=== PATIENT | female | born 1945 | race Caucasian/White ===

== ENCOUNTER 2020-08-30 12:52 | Outpatient (CLI) | payer MEDICARE, SELFPAY | END 2020-08-30 12:53 | disposition home or self-care (01) | PROVIDERS: PCP Internal Medicine; Visit Provider Internal Medicine | DX: J02.9 Acute pharyngitis, unspecified (principal) | CPT/HCPCS: 87081; 87880 ==

== ENCOUNTER 2022-03-06 20:21 | Emergency (ER) | payer MEDICARE, SELFPAY ==
[2022-03-06] VITALS (14 sets, daily range): BP systolic 137–156; BP diastolic 53–86; PULSE 81–90; RESP 9–14; O2SAT 94–99
--- NOTE | ~2022-03-06 | CT_ITS ---
EXAMINATION: CT abdomen pelvis w con DATE: 03/07/2022 00:19 INDICATION: Abdominal pain TECHNIQUE: Computed tomography (CT) of the abdomen and pelvis was performed with 100 CC Omnipaque 350 intravenous contrast. Automated exposure control and iterative reconstruction technique were employe d. Exam dose: 1187.77 mGy-cm total exam DLP. COMPARISON: None. FINDINGS: There is discoid atelectasis or scarring in the lobe and lingula. There is mild dependent a telectasis in both lower lobes. Cardiomegaly. No pericardial or pleural effusion. The liver, gallbladder, bile ducts, pancreas, pancreatic duct, spleen, adrenal glands and kidneys wilder ear normal. No urinary tract calculus or hydroureteronephrosis. Normal caliber of the abdominal aorta. No intraperitoneal or retroperitoneal or pelvic mass lesion or adenopathy or ascites. Retroverted uterus. The central endometrial echo measures up to 1.5 cm AP dimension, which is greater than expected in a postmenopausal patient. Consider pelvic ultrasound examination. The adnexal areas and urinary bladder are unremarkable except for a small amount of gas in the urinary bladder, possib ly due to recent Ma catheter. No urinary bladder wall thickening or pericholecystic fat stranding. No bowel obstruction, bowel wall thickening, pneumatosis or intraperitoneal free air. Very small fat-containing umbilical hernia. Mild to moderate L1 compression fracture deformity. Scoliosis and multilevel degenerative disc disease of the lumbar spine, most pronounced at L4-5. Ther e is mild retrolisthesis at L5-S1. IMPRESSION: Cardiomegaly Mild atelectasis in the lower lung zones Retroverted uterus with greater than expected AP dimension of the endometrial canal at 1.5 cm; consid er pelvic ultrasound examination L1 compression fracture deformity Scoliosis and multilevel degenerative disc disease of the lumbar spine Mild retrolisthesis at L5-S1 Reviewed, dictated and finalized at [facility]. Reviewed, dictated and finalized at location [facility]. IMPRESSION: Cardiomegaly Mild atelectasis in the lower lung zones Retroverted uterus with greater than expected AP dimension of the endometrial c anal at 1.5 cm; consider pelvic ultrasound examination L1 compression fracture deformity Scoliosis and multilevel degenerative disc disease of the lumbar spine Mild retrolisthesis at L5-S1
--- NOTE | ~2022-03-06 | XR_ITS ---
EXAMINATION: XR chest 2V Exam Date/Time: 03/06/2022 20:35 CDT CLINICAL HISTORY: HEART PALPATATIONS Comparison: None available. RESULT: Lines, tubes, and devices: None. Lungs and pleura: Clear. Cardiomediastinal silhouette: Stable cardiomediastinal silhouette. Other: No acute osseous or upper abdominal finding. IMPRESSION: No acute cardiopulmonary process Reviewed, dictated and finalized at location [facility].
--- NOTE | 2022-03-06 20:11 | ED.ARRPALP ---
HPI - Arrhythmia/Palpitations General Chief Complaint: Arrhythmia/Palpitations <Lauren Reardon MD - Last Filed: 03/06/22 23:59> Stated Complaint: heart palp x 1 hour ago now chest tightness <Lauren Reardon MD - Last Filed: 03/06/22 23:59> Source: patient and EMS <Lauren Reardon MD - Last Filed: 03/06/22 23:59> Mode of arrival: EMS <Lauren Reardon MD - Last Filed: 03/06/22 23:59> Limitations: no limitations <Lauren Reardon MD - Last Filed: 03/06/22 23:59> History of Present Illness HPI narrative: The patient is a 76 year old female with hx of HTN, HLD, MS on methotrexate, overactive bladder, presenting to the emergency department for evaluation of palpitations. Patient states that she has had 3 episodes of palpitations today, where she feels racing heart. She denies any significant chest pain concurrently, nausea, diaphoresis, shortness of breath. Patient states that the palpitations began and ended suddenly. They do not last more than a few seconds. She denies any jaw pain, neck pain. She does report some mild diarrhea, general malaise, intermittent abdominal pain over the past several days. Patient states that she has had loose deals for many months, thought that perhaps she had a virus. She denies any recent medication changes and has been compliant with her methotrexate. She denies dysuria, hematuria, fever, chills. She denies any known history of symptomatic COVID. She reports chronic bilateral lower extremity edema without unilateral swelling, calf pain, redness. No history of coagulopathy or DVT. Patient denies any current palpitations. <Lauren Reardon MD - Last Filed: 03/06/22 23:59> Related Data Home Medications: Home Medications Medication Instructions Recorded Confirmed baclofen 10 mg tablet 10 mg PO BID tablet 09/09/19 10/20/21 ascorbate calcium (vitamin C) 500 500 mg PO DAILY 04/05/21 10/20/21 mg tablet cholecalciferol (vitamin D3) 125 125 mcg PO DAILY 04/05/21 10/20/21 mcg (5,000 unit) capsule coenzyme [id number] 100 mg-5 cap PO 04/05/21 10/20/21 unit capsule cranberry 500 mg capsule 500 mg PO BID 04/05/21 10/20/21 folic acid 20 mg capsule 20 mg PO DAILY 04/05/21 10/20/21 multivitamin 1 tablet PO DAILY 04/05/21 10/20/21 solifenacin 10 mg tablet 10 mg PO DAILY 04/05/21 10/20/21 psyllium husk 0.4 gram capsule 0.4 g PO DAILY 08/16/21 10/20/21 methotrexate sodium 2.5 mg tablet 7.5 mg PO WEEKLY tablet 10/20/21 10/20/21 <Lauren Reardon MD - Last Filed: 03/06/22 23:59> Allergies/Adverse Reactions: Allergies Allergy/AdvReac Type Severity Reaction Status Date / Time nitrofurantoin Allergy Mild Hives Verified 10/20/21 12:44 Penicillins Allergy Mild Hives Verified 10/20/21 12:44 Sulfa (Sulfonamide Allergy Mild Rash Verified 10/20/21 12:44 Antibiotics) sulfamethizole Allergy Mild Hives Verified 10/20/21 12:44 <Lauren Reardon MD - Last Filed: 03/06/22 23:59> Review of Systems Review of Systems: CONSTITUTIONAL: Denies fever, chills, or sweats. EYES: Denies visual changes, redness, or discharge. ENT: Denies rhinorrhea, congestion, sore throat, or otalgia. CARDIOVASCULAR: Denies chest pain, reports intermittent palpitations, denies any currently RESPIRATORY: Denies cough or dyspnea. GASTROINTESTINAL: Denies abdominal pain, nausea, vomiting, or diarrhea. GENITOURINARY: Denies dysuria or hematuria. SKIN: Denies rash or itching. MUSCULOSKELETAL: Denies back pain, joint pain, or myalgia. NEUROLOGIC: Denies headache, numbness, or weakness. <Lauren Reardon MD - Last Filed: 03/06/22 23:59> [facility] Past Medical History Medical History: Medical History Encounter for screening colonoscopy <Lauren Reardon MD - Last Filed: 03/06/22 23:59> Family History Family History: Family History Sibling Family hi
--- NOTE | 2022-03-06 20:27 | ECG_ITS ---
Measurements Intervals [place] Rate: 80 P: 67 PA: 167 QRS: -31 QRSD: 136 T: -4 QT: 405 QTc: 468 Interpretive Statements SINUS RHYTHM LEFT AXIS DEVIATION [QRS AXIS < -30] RIGHT BUNDLE BRANCH BLOCK [120+ ms QRS DURATION, UPRIGHT V1, 40+ ms S IN I/aVL/V4/V5/V6] MODERATE T-WAVE ABNORMALITY, CONSIDER LATERAL ISCHEMIA [-0.1+ mV T-WAVE IN I/aVL/V5/V6] NO PREVIOUS ECG AVAILABLE FOR COMPARISON Electronically Signed On 03-07-2022 11:45:25 CDT by Guanako Rivera M.D.
[2022-03-06 21:07] LABS: Basophils Percent Auto 0.4 % (0.2-1.2); Eosinophils Absolute Auto 0.1 K/mm3 (0-0.3); Eosinophils Percent Auto 1.2 % (0-4.4); Hemoglobin 15.4 g/dL (12.0-15.0); Immature Granulocyte Absolute 0.03 K/mm3 (0.00-0.031); Immature Granulocyte Percent A 0.4 % (0-0.5); Lymphocytes Absolute Auto 1.39 K/mm3 (0.9-3.2); Lymphocytes Percent Auto 17.3 % (18.3-44.2); Mean Corpuscular HGB Conc 32.1 g/dl (32-36); Mean Corpuscular Hemoglobin 32.2 pg (26-34); Mean Corpuscular Volume 100.4 fl (80-100); Mean Platelet Volume 10.1 fl (7.4-10.4); Monocytes Absolute Auto 0.6 K/mm3 (0.1-0.6); Monocytes Percent Auto 7.8 % (2.6-8.5); Neutrophils Absolute Auto 5.9 K/mm3 (1.3-6.7); Neutrophils Percent Auto 72.9 % (45.5-73.1); Platelet Count Result 192 k/mm3 (150-375); Red Blood Count 4.78 M/mm3 (4.2-5.4); Red Cell Distribution Width 13.2 % (11.5-14.5)
[2022-03-06 21:16] LABS: Alanine Aminotransferase 45 U/L (4-35); Albumin Level 4.4 g/dL (3.5-5.1); Alkaline Phosphatase 100 U/L (38-126); Anion Gap 6 mmol/L (8-16); Aspartate Amino Transferase 44 U/L (14-36); Bilirubin,Total 0.4 mg/dL (0.2-1.3); Blood Urea Nitrogen 15 mg/dL (7-17); Calcium 9.5 mg/dL (8.4-10.2); Carbon Dioxide 31 mmol/L (22-30); Chloride 104 mmol/L (98-107); Estimated Glomerular Filt Rate > 60; Glucose 116 mg/dL (65-110); Lipase 61 U/L (23-300); Potassium 3.8 mmol/L (3.4-5.0); Sodium 141 mmol/L (137-145)
[2022-03-06 21:23] LABS: Prothrombin Time 13.1 Seconds (11.1-14.7)
[2022-03-06 21:28] LABS: Troponin I < 0.012 ng/mL (0.000-0.034)
[2022-03-06 22:50] LABS: D Dimer 0.35 ug/mL (<0.48)
[2022-03-07] VITALS (12 sets, daily range): BP systolic 156; BP diastolic 67; PULSE 84–100; RESP 12–39; O2SAT 94–96
[2022-03-07 00:03] LABS: Troponin I < 0.012 ng/mL (0.000-0.034)
[2022-03-07 02:22] LABS: SARS-CoV-2 RNA PCR Negative
== END 2022-03-07 05:28 | disposition home or self-care (01) ==
PROVIDERS: Emergency Provider Emergency Medicine; PCP Internal Medicine
DX: R00.2 Palpitations (principal); Z20.822 Contact with and (suspected) exposure to COVID-19; G35 Multiple sclerosis; I10 Essential (primary) hypertension; E78.5 Hyperlipidemia, unspecified; N32.81 Overactive bladder; I45.10 Unspecified right bundle-branch block; R94.31 Abnormal electrocardiogram [ECG] [EKG]; R10.9 Unspecified abdominal pain
CPT/HCPCS: 36415; 71046; 74177; 80053; 83690; 84443; 84484; 85025; 85380; 85610; 85730; 87804; 93005; 99284; C9803; Q9967; U0003; U0005

== ENCOUNTER 2023-01-27 13:09 | Emergency (ER) | payer MEDICARE, SELFPAY ==
--- NOTE | ~2023-01-27 | XR_ITS ---
Portable chest x-ray Comparison: 03/06/2022 Clinical History: Diabetes, CHF Findings: Lungs are clear, without focal consolidation or pleural effusion. Cardiomediastinal silho uette is stable. Bones and soft tissues are unremarkable. Impression: Clear lungs. Reviewed, dictated and finalized at location . Impression: Clear lungs.
--- NOTE | ~2023-01-27 | US_ITS ---
Duplex Sonography of the bilateral lower extremities: Indication: Swelling Sagittal and transverse B-mode images as well as color-flow imaging were performed on the right and l eft femoral and popliteal veins. B-mode examination was done without and with compression in the tra nsverse plane. There is good visualization of the bilateral common femoral, proximal profunda femora l, superficial femoral, greater saphenous, and popliteal veins. Normal flow was seen on color-flow im aging. Normal compressibility was demonstrated. There is limited visualization of the posterior tibial and peroneal veins bilaterally. Impression: No evidence of deep vein thrombosis involving the bilateral femoral, greater saphenous, s uperficial femoral, or popliteal veins. Limited evaluation of the posterior tibial and peroneal veins bilaterally. Thrombosis of these vessel s cannot be confirmed or excluded. Reviewed, dictated and finalized at location . Impression: No evidence of deep vein thrombosis involving the bilateral femoral , greater saphenous, superficial femoral, or popliteal veins. Limited evaluation of the posterior tibial and peroneal veins bilaterally. Thro mbosis of these vessels cannot be confirmed or excluded.
[2023-01-27 13:13] VITALS: BP 178/81; PULSE 62; RESP 18; TEMP 36.2; O2SAT 98
--- NOTE | 2023-01-27 15:42 | ED.LOWEXIN ---
HPI - Extremity Injury (Lower) General Chief Complaint: Extremity Injury, Lower Stated Complaint: foot swelling/weeping Time Seen by Provider: 01/27/23 15:19 Source: patient Mode of arrival: ambulatory Limitations: no limitations History of Present Illness HPI Narrative: 77-year-old female presents today for complaints of bilateral lower extremity edema. Patient states she has noticed weeping as well. Patient does have a history of bilateral lower extremity edema for over a year now and she states that she thinks it is worse. More concerning is the weeping that she is having. Patient does have a history of MS and spends most of her days in an electronic wheelchair. Per her primary care doctor's note she has lymphedema is noncompliant with her lymphedema pump. Denies injury or hx of chf. Denies sob, cough, chest pain. Related Data Home Medications Medication Instructions Recorded Confirmed baclofen 10 mg tablet 10 mg PO BID 09/09/19 10/18/22 ascorbate calcium (vitamin C) 500 500 mg PO DAILY 04/05/21 10/18/22 mg tablet cholecalciferol (vitamin D3) 125 125 mcg PO DAILY 04/05/21 10/18/22 mcg (5,000 unit) capsule coenzyme [id number] E 100 mg-5 cap PO 04/05/21 10/18/22 unit capsule (Co Q-10 (with Vit E)) cranberry 500 mg capsule 500 mg PO BID 04/05/21 10/18/22 folic acid 20 mg capsule 20 mg PO DAILY 04/05/21 10/18/22 solifenacin 10 mg tablet 10 mg PO DAILY 04/05/21 10/18/22 psyllium husk 0.4 gram capsule 0.4 g PO DAILY 08/16/21 10/18/22 (Fiber (psyllium husk)) methotrexate sodium 2.5 mg tablet 7.5 mg PO WEEKLY 10/20/21 10/18/22 Allergies Allergy/AdvReac Type Severity Reaction Status Date / Time nitrofurantoin Allergy Mild Hives Verified 01/27/23 17:37 Penicillins Allergy Mild Hives Verified 01/27/23 17:37 Sulfa (Sulfonamide Allergy Mild Rash Verified 01/27/23 17:37 Antibiotics) sulfamethizole Allergy Mild Hives Verified 01/27/23 17:37 Review of Systems Review of Systems: CONSTITUTIONAL: Denies fever, chills, or sweats. EYES: Denies visual changes, redness, or discharge. ENT: Denies rhinorrhea, congestion, sore throat, or otalgia. CARDIOVASCULAR: Denies chest pain, palpitations, or edema. RESPIRATORY: Denies cough or dyspnea. GASTROINTESTINAL: Denies abdominal pain, nausea, vomiting, or diarrhea. SKIN: Denies rash or itching. Erythema, weeping, and edema to bilateral lower extremities MUSCULOSKELETAL: Denies back pain, joint pain, or myalgia. NEUROLOGIC: Denies headache, numbness, dizziness, or weakness. PSYCHIATRIC: Denies anxiety or depression. [facility] Past Medical History Medical History Dyslipidemia Encounter for screening colonoscopy Impaired glucose tolerance Lymphedema MS (multiple sclerosis) Obesity Overactive bladder Paraparesis of both lower limbs Positive colorectal cancer screening using Cologuard test Family History Family History Sibling Family history of multiple sclerosis Father Family history of diabetes mellitus in first degree relative Acute myocardial infarction Mother Acute myocardial infarction Other Diabetes mellitus Family history of cardiovascular disease Family history of musculoskeletal disease Social History Social History Smoking status: Never smoker Second hand tobacco smoke exposure: No Alcohol intake: never Substance use: never Lack of Transportation: No Lack of Food: Never True Current Housing: I Have Housing Concerned About Future Housing: No Difficulty Paying Gas/Electric Bills: No Difficulty Paying for Meds: No Education: Master's Degree or Higher Difficulty w/ Childcare or Family Care: No Exam Narrative: GENERAL: Well-appearing, well-nourished, and in no acute distress. HEAD: Normocephalic, atraumatic. EYES: PERRLA and EOMI. CHEST: Clear to auscultation. No respi
[2023-01-27 16:27] LABS: Basophils Percent Auto 0.3 % (0.2-1.2); Eosinophils Absolute Auto 0.1 K/mm3 (0-0.3); Eosinophils Percent Auto 1.3 % (0-4.4); Hematocrit 45.6 % (37.0-47.0); Hemoglobin 14.8 g/dL (12.0-15.0); Immature Granulocyte Absolute 0.01 K/mm3 (0.00-0.031); Immature Granulocyte Percent A 0.2 % (0-0.5); Lymphocytes Absolute Auto 1.12 K/mm3 (0.9-3.2); Lymphocytes Percent Auto 18.6 % (18.3-44.2); Mean Corpuscular HGB Conc 32.5 g/dl (32-36); Mean Corpuscular Hemoglobin 32.1 pg (26-34); Mean Corpuscular Volume 98.9 fl (80-100); Mean Platelet Volume 10.7 fl (7.4-10.4); Monocytes Absolute Auto 0.5 K/mm3 (0.1-0.6); Monocytes Percent Auto 7.5 % (2.6-8.5); Neutrophils Absolute Auto 4.3 K/mm3 (1.3-6.7); Neutrophils Percent Auto 72.1 % (45.5-73.1); Platelet Count Result 144 k/mm3 (150-375); Red Blood Count 4.61 M/mm3 (4.2-5.4); Red Cell Distribution Width 14.2 % (11.5-14.5)
[2023-01-27 16:37] LABS: Prothrombin Time 12.6 Seconds (11.1-14.7)
[2023-01-27 16:38] LABS: Alanine Aminotransferase 64 U/L (6-35); Albumin Level 4.3 g/dL (3.5-5.1); Alkaline Phosphatase 119 U/L (38-126); Anion Gap 4 mmol/L (8-16); Aspartate Amino Transferase 48 U/L (14-36); Bilirubin,Total 0.6 mg/dL (0.2-1.3); Blood Urea Nitrogen 16 mg/dL (7-17); Calcium 9.8 mg/dL (8.4-10.2); Carbon Dioxide 32 mmol/L (22-30); Chloride 106 mmol/L (98-107); Estimated CRCL calculation 90 ml/min; Estimated Glomerular Filt Rate > 60; Glucose 101 mg/dL (65-110); Potassium 4.2 mmol/L (3.4-5.0); Sodium 142 mmol/L (137-145)
[2023-01-27 16:47] LABS: NT Pro B Type Natriuretic Pept 31 pg/mL (19.9-100)
[2023-01-27 17:39] VITALS: BP 154/82; PULSE 62; RESP 18; O2SAT 97
[2023-01-27] MEDS: FUROSEMIDE 20 MG TABLET PO (18:11)
== END 2023-01-27 18:24 | disposition home or self-care (01) ==
PROVIDERS: Emergency Provider Nurse Practitioner Family; PCP Internal Medicine
DX: I89.0 Lymphedema, not elsewhere classified (principal); R60.0 Localized edema; E78.5 Hyperlipidemia, unspecified; G35 Multiple sclerosis; I10 Essential (primary) hypertension; Z91.199 Patient's noncompliance with other medical treatment and regimen due to unspecified reason; Z79.899 Other long term (current) drug therapy
CPT/HCPCS: 36415; 71045; 80053; 83880; 85025; 85610; 85730; 93970; 99283; A9270

== ENCOUNTER 2023-01-31 19:26 | Inpatient (IN) | payer MEDICARE, SELFPAY ==
--- NOTE | ~2023-01-31 | XR_ITS ---
MODIFIED ESOPHAGRAM HISTORY: Witnessed choking TECHNIQUE: Modified barium esophagram was performed by speech pathologist under radiologist fluorosco pic guidance. This was recorded on tape. The exam was reviewed on 02/02/2023 10:29 CDT. The DAP for this procedure was 0.9 Gycm2. Fluoroscopy time is 1.0 minutes. FINDINGS: Lateral projection of the cervical spine demonstrates normal alignment. Normal swallowing function without evidence for aspiration.. IMPRESSION: 1: Normal swallowing function without aspiration. 2: Please refer to speech pathologist report for additional detail. Reviewed, dictated and finalized at location A.
[2023-01-31 20:09] VITALS: BP 138/77; PULSE 74; RESP 20; TEMP 35.7; O2SAT 100
[2023-01-31 21:01] VITALS: BP 155/85; PULSE 75; RESP 20; O2SAT 99
[2023-01-31 23:47] LABS: Basophils Percent Auto 0.3 % (0.2-1.2); Eosinophils Absolute Auto 0.1 K/mm3 (0-0.3); Eosinophils Percent Auto 0.7 % (0-4.4); Hematocrit 48.2 % (37.0-47.0); Hemoglobin 15.5 g/dL (12.0-15.0); Immature Granulocyte Absolute 0.01 K/mm3 (0.00-0.031); Immature Granulocyte Percent A 0.1 % (0-0.5); Lymphocytes Absolute Auto 0.96 K/mm3 (0.9-3.2); Lymphocytes Percent Auto 13.7 % (18.3-44.2); Mean Corpuscular HGB Conc 32.2 g/dl (32-36); Mean Corpuscular Hemoglobin 31.8 pg (26-34); Mean Corpuscular Volume 98.8 fl (80-100); Mean Platelet Volume 10.8 fl (7.4-10.4); Monocytes Absolute Auto 0.6 K/mm3 (0.1-0.6); Monocytes Percent Auto 7.8 % (2.6-8.5); Neutrophils Absolute Auto 5.4 K/mm3 (1.3-6.7); Neutrophils Percent Auto 77.4 % (45.5-73.1); Platelet Count Result 154 k/mm3 (150-375); Red Blood Count 4.88 M/mm3 (4.2-5.4); Red Cell Distribution Width 14.4 % (11.5-14.5)
[2023-02-01 00:01] LABS: Prothrombin Time 12.8 Seconds (11.1-14.7)
[2023-02-01 00:02] LABS: Partial Thromboplastin Time 33.3 SECONDS (22.3-36.8)
[2023-02-01 00:04] LABS: Alanine Aminotransferase 61 U/L (6-35); Albumin Level 4.4 g/dL (3.5-5.1); Alkaline Phosphatase 129 U/L (38-126); Anion Gap 6 mmol/L (8-16); Aspartate Amino Transferase 52 U/L (14-36); Bilirubin,Total 0.7 mg/dL (0.2-1.3); Blood Urea Nitrogen 27 mg/dL (7-17); CRP 2.2 mg/dL (<1.0); Calcium 10.1 mg/dL (8.4-10.2); Carbon Dioxide 32 mmol/L (22-30); Chloride 105 mmol/L (98-107); Estimated CRCL calculation 76 ml/min; Estimated Glomerular Filt Rate > 60; Glucose 106 mg/dL (65-110); Potassium 4.1 mmol/L (3.4-5.0); Sodium 143 mmol/L (137-145)
[2023-02-01 00:10] LABS: NT Pro B Type Natriuretic Pept 26 pg/mL (19.9-100)
--- NOTE | 2023-02-01 00:30 | ED.EXTPRO ---
HPI - Extremity Problem General Chief complaint: Extremity Problem,Nontraumatic <Trish Ríos PA-C - Last Filed: 02/01/23 02:09> Stated complaint: weeping edema to left foot <Trish Ríos PA-C - Last Filed: 02/01/23 02:09> Time Seen by Provider: 01/31/23 22:09 <ACOSTA Raines Last Filed: 02/01/23 02:09> Source: patient <ACOSTA Raines Last Filed: 02/01/23 02:09> Mode of arrival: ambulatory <ACOSTA Raines Last Filed: 02/01/23 02:09> Limitations: no limitations <ACOSTA Raines Last Filed: 02/01/23 02:09> History of Present Illness HPI Narrative: Patient is a 77-year-old female, with past medical history of MS, who presents the ED with report of lower extremity pain, swelling, weeping. Patient reports having increased swelling in her lower extremities for the last several weeks. Patient was seen in the ED on 01/27 at which point she had a negative ultrasound of her lower extremities. Patient does have a history of lymphedema and has previously been prescribed a lymphedema pump. Patient states she cannot reach down far enough to put the pump on. Patient denies any history of blood clots, congestive heart failure. Swelling seemed to become worse over the last few days and weeping worse today, to the point that she is unable to care for herself at home. She does live alone and does not have additional help. Patient typically uses an electric wheelchair for mobility, but has now had issues with transferring, using the restroom by herself, otherwise caring for herself. She denies any recent cough or cold symptoms, fever, chest pain, difficulty breathing. She is not on any diuretic therapy. <Trish Ríos PA-C - Last Filed: 02/01/23 02:09> Related Data Home medications: Home Medications Medication Instructions Recorded Confirmed baclofen 10 mg tablet 10 mg PO BID 09/09/19 02/01/23 ascorbate calcium (vitamin C) 500 500 mg PO DAILY 04/05/21 02/01/23 mg tablet cholecalciferol (vitamin D3) 125 125 mcg PO DAILY 04/05/21 02/01/23 mcg (5,000 unit) capsule cranberry 500 mg capsule 500 mg PO DAILY 04/05/21 02/01/23 folic acid 20 mg capsule 20 mg PO DAILY 04/05/21 02/01/23 solifenacin 10 mg tablet 10 mg PO DAILY 04/05/21 02/01/23 psyllium husk 0.4 gram capsule 0.4 g PO DAILY 08/16/21 02/01/23 (Fiber (psyllium husk)) methotrexate sodium 2.5 mg tablet 7.5 mg PO WEEKLY 10/20/21 02/01/23 <Trish Ríos PA-C - Last Filed: 02/01/23 02:09> Allergies/Adverse reactions: Allergies Allergy/AdvReac Type Severity Reaction Status Date / Time nitrofurantoin Allergy Mild Hives Verified 02/01/23 03:42 Penicillins Allergy Mild Hives Verified 02/01/23 03:42 Sulfa (Sulfonamide Allergy Mild Rash Verified 02/01/23 03:42 Antibiotics) sulfamethizole Allergy Mild Hives Verified 02/01/23 03:42 <Trish Ríos PA-C - Last Filed: 02/01/23 02:09> Review of Systems Review of Systems: CONSTITUTIONAL: Denies fever, chills, or sweats. CARDIOVASCULAR: See HPI. RESPIRATORY: Denies cough or dyspnea. GASTROINTESTINAL: Denies abdominal pain, nausea, vomiting, or diarrhea. GENITOURINARY: Denies dysuria or hematuria. SKIN: See HPI. MUSCULOSKELETAL: See HPI. NEUROLOGIC: Denies headache, numbness, or weakness. <Trish Ríos PA-C - Last Filed: 02/01/23 02:09> All systems reviewed & are unremarkable except as noted in HPI and below <Trish Ríos PA-C - Last Filed: 02/01/23 02:09> [facility] Past Medical History Medical History: Medical History (Updated 02/01/23 @ 01:53 by Trish Ríos PA-C) Dyslipidemia Encounter for screening colonoscopy Essential hypertension Impaired glucose tolerance Lymphedema MS (multiple sclerosis) Obesity Overactive bladder Paraparesis of both lower limbs Positive colorectal cancer screening using Cologuard test <Trish Ríos PA-C - Last Filed:
[2023-02-01 01:01] LABS: Erythrocyte Sedimentation Rate 23 mm/hr (0-20)
[2023-02-01 03:55] VITALS: BMI 35.9
--- NOTE | 2023-02-01 04:57 | PC.NURSE ---
Patient arrived on 3 Med-Surg at 03:15
[2023-02-01 06:00] VITALS: BP 108/58; PULSE 63; RESP 16; TEMP 35.9; O2SAT 97
[2023-02-01 14:00] VITALS: BP 118/74; PULSE 79; RESP 16; TEMP 35.8; O2SAT 97
--- NOTE | 2023-02-01 14:03 | PCOTNOTE ---
Attempted to see pt. for occupational therapy evaluation. Pt. stated she is in too much pain to participate today. Friends present stating that pt. is also acting confused. Nursing updated. Following.
--- NOTE | 2023-02-01 14:41 | PM.IMHP ---
H&P: HPI History of Present Illness Date/Time: 02/01/23 14:41 Chief Complaint: Generalized weakness Narrative: ED-HPI Narrative: Patient is a 77-year-old female, with past medical history of MS, who presents the ED with report of lower extremity pain, swelling, weeping.? Patient reports having increased swelling in her lower extremities for the last several weeks. Patient was seen in the ED on 01/27 at which point she had a negative ultrasound of her lower extremities.? Patient does have a history of lymphedema and has previously been prescribed a lymphedema pump.? Patient states she cannot reach down far enough to put the pump on.? Patient denies any history of blood clots, congestive heart failure. Swelling seemed to become worse over the last few days and weeping worse today, to the point that she is unable to care for herself at home.? She does live alone and does not have additional help.? Patient typically uses an electric wheelchair for mobility, but has now had issues with transferring, using the restroom by herself, otherwise caring for herself. She denies any recent cough or cold symptoms, fever, chest pain, difficulty breathing.? She is not on any diuretic therapy. Patient with MS for a long time, lower extremities lymphedema, and difficulty with mobility and unable to do her ADL, patient lives alone, needs assistance, patient presented to ER as her symptoms are worsening, patient is not taking her home medication, lower extremities are edematous and there is hypermia, and some excoriation and scabs on left lower extremites. will have PT/oT evaluate the patient, patient does straight cath herself and there is concern to UTI will check her UA, possibly her confusion and weakness is related to UTI Patient admitted as observation status Review of Systems Review of Systems: CONSTITUTIONAL: Denies fever, chills, or sweats. CARDIOVASCULAR: See HPI. RESPIRATORY: Denies cough or dyspnea. GASTROINTESTINAL: Denies abdominal pain, nausea, vomiting, or diarrhea. GENITOURINARY: Denies dysuria or hematuria. SKIN: See HPI. MUSCULOSKELETAL: See HPI. NEUROLOGIC: Denies headache, numbness, or weakness. All systems reviewed & are unremarkable except as noted in HPI and below [facility] Past Medical History Medical History (Updated 02/01/23 @ 01:53 by Trish Ríos PA-C) Dyslipidemia Encounter for screening colonoscopy Essential hypertension Impaired glucose tolerance Lymphedema MS (multiple sclerosis) Obesity Overactive bladder Paraparesis of both lower limbs Positive colorectal cancer screening using Cologuard test Surgical History Surgical History (Updated 02/01/23 @ 00:37 by Trish Ríos PA-C) No pertinent past surgical history Family History Family History (Updated 02/01/23 @ 04:11 by London Slater RN) Sibling Family history of multiple sclerosis Father Acute myocardial infarction Family history of diabetes mellitus in first degree relative Diabetes mellitus Mother Acute myocardial infarction Sibling Family history of musculoskeletal disease Other Family history of cardiovascular disease Social History Social History Smoking status: Never smoker Second hand tobacco smoke exposure: No Alcohol intake: current Drinks per week: 1 Substance use: current Substance use type: does not use Lack of Transportation: YES Lack of Food: Never True Current Housing: I Have Housing Concerned About Future Housing: No Difficulty Paying Gas/Electric Bills: No Difficulty Paying for Meds: No Currently Unemployed: No Education: Master's Degree or Higher Difficulty w/ Childcare or Family Care: No Spiritual care concerns: No Meds Home Medications and Allergies Home Medications Medication Instructions Recorded Confirmed Type baclofen 10 mg tablet 10 mg PO BID 09/09/19 02/01/23 History ascorbate calcium (vitamin C)
--- NOTE | 2023-02-01 15:28 | PCSTNOTE ---
Please refer to the Bedside Swallow Evaluation in the EMR. Please note, silent aspiration cannot be ruled out at bedside.
--- NOTE | 2023-02-01 19:04 | PC.NURSE ---
This RN called MD d/t pt only producing 170mls urine in 10 hours. Pt not drinking much today. Requested IVF; received order for NS@100.
--- NOTE | 2023-02-01 19:06 | PC.NURSE ---
Pt had episodes of witnessed choking and extreme fatigue. Held off administering meds until pt cleared by speech and more awake. By time this occurred, held meds due to next doses due close.
[2023-02-01] MEDS: BACLOFEN 10 MG TABLET PO (20:59)
[2023-02-01] MEDS: SODIUM CHLORIDE 0.9% IV 1,000 ML 100 ML IV CONT (21:24)
[2023-02-01] MEDS: ENOXAPARIN 40 MG/0.4 ML SYRINGE SUB-Q (21:28)
[2023-02-01 22:00] VITALS: BP 114/55; PULSE 77; RESP 16; TEMP 36.5; O2SAT 97
--- NOTE | 2023-02-02 05:33 | PC.NURSE ---
Pt uncooperative with care rendered. Does not want to be turned and repositioned. Pt states that she is fine and doesn't need to be turned. Pt is not comfortable with all changes of position. Multiple offers to give pt tylenol- pt refuses . States she doesn't need pain medication. Pt yells with all movement, all touch to body. Pt cannot move legs, wiggles one large toe on each foot. Slumps over to side, cannot reposition self. Limited movement to arms. IVF infusing. staff to hold container so pt can drink. Instructed pt on pending barium swallow due to coughing with meals. Pt denies coughing. Lower legs edematous, red, draining yellow fluid on disposable chux wound care provided. Reviewed the plan of care, general instructions. Pt refuses all teaching
[2023-02-02 06:00] VITALS: BP 124/64; PULSE 77; RESP 16; TEMP 36.1; O2SAT 95
[2023-02-02] MEDS: CHOLECALCIFEROL 1,000 UNITS TABLET 5000 UNITS PO (10:39)
[2023-02-02] MEDS: ASCORBIC ACID 500 MG TABLET PO (10:39)
[2023-02-02] MEDS: SOLIFENACIN 5 MG TABLET 10 MG PO (10:39)
[2023-02-02] MEDS: FOLIC ACID 1 MG TABLET PO (10:39)
[2023-02-02] MEDS: BACLOFEN 10 MG TABLET PO ×2 (10:40→23:06)
[2023-02-02] MEDS: ATORVASTATIN 40 MG TABLET BY MOUTH (10:41)
--- NOTE | 2023-02-02 10:42 | PCSTNOTE ---
Results of modified barium swallow study within normal limits. Patient was given trial boluses of thin, pureed, mixed, and solid consistencies and no penetration or aspiration was observed. No further speech therapy recommended. Regular diet with thin liquids recommended. Thank you for the referral of this patient.
[2023-02-02 11:02] VITALS: BMI 11.0
--- NOTE | 2023-02-02 13:06 | PM.IMPN ---
Progress Note: A&P Assessment and Plan (1) Localized swelling of both lower extremities: Code(s): M79.89 - Other specified soft tissue disorders Status: Acute Assessment and Plan: ED-[facility] Narrative: Patient is a 77-year-old female, with past medical history of MS, who presents the ED with report of lower extremity pain, swelling, weeping.? Patient reports having increased swelling in her lower extremities for the last several weeks. Patient was seen in the ED on 01/27 at which point she had a negative ultrasound of her lower extremities.? Patient does have a history of lymphedema and has previously been prescribed a lymphedema pump.? Patient states she cannot reach down far enough to put the pump on.? Patient denies any history of blood clots, congestive heart failure. Swelling seemed to become worse over the last few days and weeping worse today, to the point that she is unable to care for herself at home.? She does live alone and does not have additional help.? Patient typically uses an electric wheelchair for mobility, but has now had issues with transferring, using the restroom by herself, otherwise caring for herself. She denies any recent cough or cold symptoms, fever, chest pain, difficulty breathing.? She is not on any diuretic therapy. 02/02/2023 interval hsitory: Patient with MS for a long time, lower extremities lymphedema, and difficulty with mobility and unable to do her ADL, patient lives alone, needs assistance, patient presented to ER as her symptoms are worsening, patient is not taking her home medication, lower extremities are edematous and there is hypermia, and some excoriation and scabs on left lower extremites. will have PT/OT evaluate the patient, patient does straight cath herself and there is concern for UTI will check her UA, possibly her confusion and weakness is related to UTI, urine is pending will follow-up. (2) Impaired mobility and ADLs: Code(s): Z74.09 - Other reduced mobility; Z78.9 - Other specified health status Status: Acute Assessment and Plan: Will have PT OT evaluate the patient (3) Unable to perform basic transfers independently: Code(s): R68.89 - Other general symptoms and signs Status: Acute Assessment and Plan: Patient will benefit going to rehab (4) Essential hypertension: Code(s): I10 - Essential (primary) hypertension Status: Acute Assessment and Plan: Will continue home regimen Subjective Date/time seen: 02/02/23 13:06 ED-HPI Narrative: Patient is a 77-year-old female, with past medical history of MS, who presents the ED with report of lower extremity pain, swelling, weeping.? Patient reports having increased swelling in her lower extremities for the last several weeks. Patient was seen in the ED on 01/27 at which point she had a negative ultrasound of her lower extremities.? Patient does have a history of lymphedema and has previously been prescribed a lymphedema pump.? Patient states she cannot reach down far enough to put the pump on.? Patient denies any history of blood clots, congestive heart failure. Swelling seemed to become worse over the last few days and weeping worse today, to the point that she is unable to care for herself at home.? She does live alone and does not have additional help.? Patient typically uses an electric wheelchair for mobility, but has now had issues with transferring, using the restroom by herself, otherwise caring for herself. She denies any recent cough or cold symptoms, fever, chest pain, difficulty breathing.? She is not on any diuretic therapy. 02/02/2023 interval hsitory: Patient with MS for a long time, lower extremities lymphedema, and difficulty with mobility and unable to do her ADL, patient lives alone, needs assistance, patient presented to ER as her symptoms are worsening, patient is not taking her home medication, lower extremities are edematous and there is hypermia, and some excoriation and sc
[2023-02-02 14:00] VITALS: BP 110/58; PULSE 67; RESP 16; TEMP 36.2; O2SAT 96
[2023-02-02 16:19] LABS: Appearance Urine Clear (Clear); Bacteria Urine 3+ /hpf; Bilirubin Urine Negative (Negative); Blood Urine Negative (Negative); Color Urine Yellow (Yellow); Glucose Urine UA Negative (Negative); Ketones Urine Negative (Negative); Leukocyte Esterase Ur 2+ LEU/UL (NEGATIVE); Nitrate Urine Positive (Negative); Protein Urine Negative (Negative); RBC Urine 0-2 /hpf (0-2); Squamous Epithelial Cell Urine None seen /hpf (Few); WBC Urine 21-50 /hpf (0-3)
[2023-02-02 16:31] LABS: Add Urine Microscopic? YES
[2023-02-02 20:00] VITALS: O2SAT 96
--- NOTE | 2023-02-02 20:09 | PC.NURSE ---
pt requiring enema, last bm charted on admission 01/31/23 per charting, called YORDY Bess about bowel regimen orders for pt, informed pt required enema last bm charted 01/31/23
[2023-02-02 22:00] VITALS: BP 141/64; PULSE 80; RESP 16; TEMP 35.7; O2SAT 96
[2023-02-03 05:13] VITALS: BP 128/66; PULSE 68; RESP 20; TEMP 35.7; O2SAT 94
[2023-02-03 06:08] LABS: Hematocrit 40.8 % (37.0-47.0); Hemoglobin 13.1 g/dL (12.0-15.0); Immature Platelet Fraction Pct 7.4 % (0.9-11.2); Mean Corpuscular HGB Conc 32.1 g/dl (32-36); Mean Corpuscular Hemoglobin 32.3 pg (26-34); Mean Corpuscular Volume 100.5 fl (80-100); Mean Platelet Volume 10.8 fl (7.4-10.4); Platelet Count Result 142 k/mm3 (150-375); Red Blood Count 4.06 M/mm3 (4.2-5.4); Red Cell Distribution Width 14.4 % (11.5-14.5); White Blood Count 8.3 K/mm3 (4.5-10.0)
[2023-02-03 06:26] LABS: Anion Gap 2 mmol/L (8-16); Blood Urea Nitrogen 13 mg/dL (7-17); Calcium 9.2 mg/dL (8.4-10.2); Carbon Dioxide 29 mmol/L (22-30); Chloride 108 mmol/L (98-107); Estimated CRCL calculation 77 ml/min; Estimated Glomerular Filt Rate > 60; Glucose 92 mg/dL (65-110); Magnesium 1.9 mg/dL (1.6-2.3); Potassium 3.9 mmol/L (3.4-5.0); Sodium 139 mmol/L (137-145)
[2023-02-03] MEDS: SODIUM CHLORIDE 0.9% IV 1,000 ML 100 ML IV CONT ×3 (06:54→20:53)
[2023-02-03] MEDS: CHOLECALCIFEROL 1,000 UNITS TABLET 5000 UNITS PO (08:15)
[2023-02-03] MEDS: SOLIFENACIN 5 MG TABLET 10 MG PO (08:16)
[2023-02-03] MEDS: ATORVASTATIN 40 MG TABLET BY MOUTH (08:16)
[2023-02-03] MEDS: ASCORBIC ACID 500 MG TABLET PO (08:19)
[2023-02-03] MEDS: FOLIC ACID 1 MG TABLET PO (08:19)
--- NOTE | 2023-02-03 13:28 | PM.IMPN ---
Progress Note: A&P Assessment and Plan (1) Localized swelling of both lower extremities: Code(s): M79.89 - Other specified soft tissue disorders Status: Acute Assessment and Plan: ED-[facility] Narrative: Patient is a 77-year-old female, with past medical history of MS, who presents the ED with report of lower extremity pain, swelling, weeping.? Patient reports having increased swelling in her lower extremities for the last several weeks. Patient was seen in the ED on 01/27 at which point she had a negative ultrasound of her lower extremities.? Patient does have a history of lymphedema and has previously been prescribed a lymphedema pump.? Patient states she cannot reach down far enough to put the pump on.? Patient denies any history of blood clots, congestive heart failure. Swelling seemed to become worse over the last few days and weeping worse today, to the point that she is unable to care for herself at home.? She does live alone and does not have additional help.? Patient typically uses an electric wheelchair for mobility, but has now had issues with transferring, using the restroom by herself, otherwise caring for herself. She denies any recent cough or cold symptoms, fever, chest pain, difficulty breathing.? She is not on any diuretic therapy. 02/03/2023 interval hsitory: Patient with MS for a long time, lower extremities lymphedema, and difficulty with mobility and unable to do her ADL, patient lives alone, needs assistance, patient presented to ER as her symptoms are worsening, patient is not taking her home medication, lower extremities are edematous and there is hypermia, and some excoriation and scabs on left lower extremites. will have PT/OT evaluate the patient, patient does straight cath herself and there is concern for UTI will check her UA, patient UA is positive for whites counts, possibly her confusion and weakness is related to UTI, will start patient on levoflox, will follow up on urine culture, patient will need NH as patient is unable to do to her ADLs by herself, (2) Impaired mobility and ADLs: Code(s): Z74.09 - Other reduced mobility; Z78.9 - Other specified health status Status: Acute Assessment and Plan: Will have PT OT evaluate the patient (3) Unable to perform basic transfers independently: Code(s): R68.89 - Other general symptoms and signs Status: Acute Assessment and Plan: Patient will benefit going to rehab (4) Essential hypertension: Code(s): I10 - Essential (primary) hypertension Status: Acute Assessment and Plan: Will continue home regimen Subjective Date/time seen: 02/03/23 13:28 ED-HPI Narrative: Patient is a 77-year-old female, with past medical history of MS, who presents the ED with report of lower extremity pain, swelling, weeping.? Patient reports having increased swelling in her lower extremities for the last several weeks. Patient was seen in the ED on 01/27 at which point she had a negative ultrasound of her lower extremities.? Patient does have a history of lymphedema and has previously been prescribed a lymphedema pump.? Patient states she cannot reach down far enough to put the pump on.? Patient denies any history of blood clots, congestive heart failure. Swelling seemed to become worse over the last few days and weeping worse today, to the point that she is unable to care for herself at home.? She does live alone and does not have additional help.? Patient typically uses an electric wheelchair for mobility, but has now had issues with transferring, using the restroom by herself, otherwise caring for herself. She denies any recent cough or cold symptoms, fever, chest pain, difficulty breathing.? She is not on any diuretic therapy. 02/03/2023 interval hsitory: Patient with MS for a long time, lower extremities lymphedema, and difficulty with mobility and unable to do her ADL, patient lives alone, needs assistance, patient presented to ER as her symp
[2023-02-03 14:00] VITALS: BP 131/60; PULSE 78; RESP 20; TEMP 36.2; O2SAT 96
[2023-02-03] MEDS: BACLOFEN 10 MG TABLET PO ×2 (18:26→21:18)
[2023-02-03 20:37] VITALS: BP 130/58; PULSE 91; RESP 16; TEMP 36.6; O2SAT 97
[2023-02-04 04:07] VITALS: BP 130/58; PULSE 69; RESP 18; TEMP 36; O2SAT 95
[2023-02-04 06:18] LABS: Hematocrit 37.9 % (37.0-47.0); Hemoglobin 12.3 g/dL (12.0-15.0); Mean Corpuscular HGB Conc 32.5 g/dl (32-36); Mean Corpuscular Hemoglobin 32.4 pg (26-34); Mean Corpuscular Volume 99.7 fl (80-100); Platelet Count Result 130 k/mm3 (150-375); Red Cell Distribution Width 14.4 % (11.5-14.5)
[2023-02-04 06:40] LABS: Anion Gap 1 mmol/L (8-16); Blood Urea Nitrogen 12 mg/dL (7-17); Calcium 8.7 mg/dL (8.4-10.2); Carbon Dioxide 28 mmol/L (22-30); Chloride 110 mmol/L (98-107); Estimated CRCL calculation 91 ml/min; Estimated Glomerular Filt Rate > 60; Glucose 98 mg/dL (65-110); Magnesium 1.7 mg/dL (1.6-2.3); Potassium 3.6 mmol/L (3.4-5.0); Sodium 139 mmol/L (137-145)
[2023-02-04] MEDS: SOLIFENACIN 5 MG TABLET 10 MG PO (08:08)
[2023-02-04] MEDS: ATORVASTATIN 40 MG TABLET BY MOUTH (08:08)
[2023-02-04] MEDS: FOLIC ACID 1 MG TABLET PO (08:09)
[2023-02-04] MEDS: ASCORBIC ACID 500 MG TABLET PO (08:09)
[2023-02-04] MEDS: CHOLECALCIFEROL 1,000 UNITS TABLET 5000 UNITS PO (08:09)
[2023-02-04] MEDS: SODIUM CHLORIDE 0.9% IV 1,000 ML 100 ML IV CONT (08:15)
[2023-02-04 13:47] VITALS: BMI 11.0
[2023-02-04 14:00] VITALS: BP 126/67; PULSE 78; RESP 18; TEMP 36.4; O2SAT 99
--- NOTE | 2023-02-04 16:05 | PM.IMPN ---
Progress Note: A&P Assessment and Plan (1) Localized swelling of both lower extremities: Code(s): M79.89 - Other specified soft tissue disorders Status: Acute Assessment and Plan: ED-[facility] Narrative: Patient is a 77-year-old female, with past medical history of MS, who presents the ED with report of lower extremity pain, swelling, weeping.? Patient reports having increased swelling in her lower extremities for the last several weeks. Patient was seen in the ED on 01/27 at which point she had a negative ultrasound of her lower extremities.? Patient does have a history of lymphedema and has previously been prescribed a lymphedema pump.? Patient states she cannot reach down far enough to put the pump on.? Patient denies any history of blood clots, congestive heart failure. Swelling seemed to become worse over the last few days and weeping worse today, to the point that she is unable to care for herself at home.? She does live alone and does not have additional help.? Patient typically uses an electric wheelchair for mobility, but has now had issues with transferring, using the restroom by herself, otherwise caring for herself. She denies any recent cough or cold symptoms, fever, chest pain, difficulty breathing.? She is not on any diuretic therapy. 02/04/2023 interval hsitory: Patient with MS for a long time, lower extremities lymphedema, and difficulty with mobility and unable to do her ADL, patient lives alone, needs assistance, patient presented to ER as her symptoms are worsening, patient is not taking her home medication, lower extremities are edematous and there is hypermia, and some excoriation and scabs on left lower extremites. will have PT/OT evaluate the patient, patient does straight cath herself and there is concern for UTI will check her UA, patient UA is positive for whites counts, possibly her confusion and weakness is related to UTI, will start patient on levoflox, urine culture is growing E coli pansensitive, will continue levofloxacin, patient will need NH as patient is unable to do to her ADLs by herself, (2) Impaired mobility and ADLs: Code(s): Z74.09 - Other reduced mobility; Z78.9 - Other specified health status Status: Acute Assessment and Plan: Will have PT OT evaluate the patient (3) Unable to perform basic transfers independently: Code(s): R68.89 - Other general symptoms and signs Status: Acute Assessment and Plan: Patient will benefit going to rehab (4) Essential hypertension: Code(s): I10 - Essential (primary) hypertension Status: Acute Assessment and Plan: Will continue home regimen Subjective Date/time seen: 02/04/23 16:05 ED-HPI Narrative: Patient is a 77-year-old female, with past medical history of MS, who presents the ED with report of lower extremity pain, swelling, weeping.? Patient reports having increased swelling in her lower extremities for the last several weeks. Patient was seen in the ED on 01/27 at which point she had a negative ultrasound of her lower extremities.? Patient does have a history of lymphedema and has previously been prescribed a lymphedema pump.? Patient states she cannot reach down far enough to put the pump on.? Patient denies any history of blood clots, congestive heart failure. Swelling seemed to become worse over the last few days and weeping worse today, to the point that she is unable to care for herself at home.? She does live alone and does not have additional help.? Patient typically uses an electric wheelchair for mobility, but has now had issues with transferring, using the restroom by herself, otherwise caring for herself. She denies any recent cough or cold symptoms, fever, chest pain, difficulty breathing.? She is not on any diuretic therapy. 02/04/2023 interval hsitory: Patient with MS for a long time, lower extremities lymphedema, and difficulty with mobility and unable to do her ADL, patient lives alone, needs assist
[2023-02-04 20:00] VITALS: O2SAT 99
[2023-02-04 21:20] VITALS: BP 124/71; PULSE 70; RESP 18; TEMP 36.3; O2SAT 99
[2023-02-04] MEDS: levoFLOXacin 750 MG TABLET PO (21:23)
[2023-02-04] MEDS: BACLOFEN 10 MG TABLET PO (21:25)
[2023-02-04] MEDS: ENOXAPARIN 40 MG/0.4 ML SYRINGE SUB-Q (23:11)
[2023-02-05 06:00] VITALS: BP 128/80; PULSE 69; RESP 18; TEMP 35.9; O2SAT 96
[2023-02-05 06:35] LABS: Hematocrit 39.4 % (37.0-47.0); Hemoglobin 12.9 g/dL (12.0-15.0); Mean Corpuscular HGB Conc 32.7 g/dl (32-36); Mean Corpuscular Hemoglobin 31.7 pg (26-34); Mean Corpuscular Volume 96.8 fl (80-100); Mean Platelet Volume 10.7 fl (7.4-10.4); Platelet Count Result 150 k/mm3 (150-375); Red Blood Count 4.07 M/mm3 (4.2-5.4); Red Cell Distribution Width 14.1 % (11.5-14.5); White Blood Count 6.9 K/mm3 (4.5-10.0)
[2023-02-05 06:45] LABS: Anion Gap 0 mmol/L (8-16); Blood Urea Nitrogen 12 mg/dL (7-17); Calcium 8.9 mg/dL (8.4-10.2); Carbon Dioxide 31 mmol/L (22-30); Chloride 109 mmol/L (98-107); Estimated CRCL calculation 77 ml/min; Estimated Glomerular Filt Rate > 60; Glucose 96 mg/dL (65-110); Magnesium 1.8 mg/dL (1.6-2.3); Potassium 3.6 mmol/L (3.4-5.0); Sodium 140 mmol/L (137-145)
[2023-02-05] MEDS: ATORVASTATIN 40 MG TABLET BY MOUTH (10:28)
[2023-02-05] MEDS: ASCORBIC ACID 500 MG TABLET PO (10:28)
[2023-02-05] MEDS: CHOLECALCIFEROL 1,000 UNITS TABLET 5000 UNITS PO (10:28)
[2023-02-05] MEDS: SOLIFENACIN 5 MG TABLET 10 MG PO (10:28)
[2023-02-05] MEDS: FOLIC ACID 1 MG TABLET PO (10:28)
--- NOTE | 2023-02-05 10:53 | P.CDI_ITS ---
CDI Query Clarified Diagnosis Clarified Diagnosis: Urine culture from 02/01/23 grew > 100,000 E. Coli. Documented that Pt uses a straight catheter. Pt receiving Levaquin daily. Clarification request - UTI has been documented, other johnson catheter documented. Please clarify if UTI is: * due to/associated with other johnson catheter * not due to/associated with other johnson catheter * unable to determine <Ester Sepulveda RN - Last Filed: 02/05/23 11:00> Provider Comments UTI associated with other johnson catheter <Min Jacobs MD - Last Filed: 02/18/23 15:47>
[2023-02-05 14:00] VITALS: BP 110/61; PULSE 65; RESP 16; TEMP 35.7; O2SAT 95
--- NOTE | 2023-02-05 14:25 | PM.IMPN ---
Progress Note: A&P Assessment and Plan (1) Localized swelling of both lower extremities: Code(s): M79.89 - Other specified soft tissue disorders Status: Acute Assessment and Plan: ED-[facility] Narrative: Patient is a 77-year-old female, with past medical history of MS, who presents the ED with report of lower extremity pain, swelling, weeping.? Patient reports having increased swelling in her lower extremities for the last several weeks. Patient was seen in the ED on 01/27 at which point she had a negative ultrasound of her lower extremities.? Patient does have a history of lymphedema and has previously been prescribed a lymphedema pump.? Patient states she cannot reach down far enough to put the pump on.? Patient denies any history of blood clots, congestive heart failure. Swelling seemed to become worse over the last few days and weeping worse today, to the point that she is unable to care for herself at home.? She does live alone and does not have additional help.? Patient typically uses an electric wheelchair for mobility, but has now had issues with transferring, using the restroom by herself, otherwise caring for herself. She denies any recent cough or cold symptoms, fever, chest pain, difficulty breathing.? She is not on any diuretic therapy. 02/05/2023 interval history: Patient with MS for a long time, lower extremities lymphedema, and difficulty with mobility and unable to do her ADL, patient lives alone, needs assistance, patient presented to ER as her symptoms are worsening, patient was not taking her home medication, lower extremities are edematous and there is hyperemia, and some excoriation and scabs on left lower extremites. will have PT/OT evaluate the patient, patient patient required significant assistance with her ADLs, patient does straight cath herself and there is concern for UTI will check her UA, patient UA is positive for whites counts, possibly her confusion and weakness is related to UTI, will start patient on levoflox, urine culture is growing E coli pansensitive, patient now has a Ma, will continue levofloxacin, patient will need NH as patient is unable to do to her ADLs by herself, (2) Impaired mobility and ADLs: Code(s): Z74.09 - Other reduced mobility; Z78.9 - Other specified health status Status: Acute Assessment and Plan: Will have PT OT evaluate the patient (3) Unable to perform basic transfers independently: Code(s): R68.89 - Other general symptoms and signs Status: Acute Assessment and Plan: Patient will benefit going to rehab (4) Essential hypertension: Code(s): I10 - Essential (primary) hypertension Status: Acute Assessment and Plan: Will continue home regimen Subjective Date/time seen: 02/05/23 14:25 ED-HPI Narrative: Patient is a 77-year-old female, with past medical history of MS, who presents the ED with report of lower extremity pain, swelling, weeping.? Patient reports having increased swelling in her lower extremities for the last several weeks. Patient was seen in the ED on 01/27 at which point she had a negative ultrasound of her lower extremities.? Patient does have a history of lymphedema and has previously been prescribed a lymphedema pump.? Patient states she cannot reach down far enough to put the pump on.? Patient denies any history of blood clots, congestive heart failure. Swelling seemed to become worse over the last few days and weeping worse today, to the point that she is unable to care for herself at home.? She does live alone and does not have additional help.? Patient typically uses an electric wheelchair for mobility, but has now had issues with transferring, using the restroom by herself, otherwise caring for herself. She denies any recent cough or cold symptoms, fever, chest pain, difficulty breathing.? She is not on any diuretic therapy. 02/05/2023 interval history: Patient with MS for a long time, lower extremities lymphedem
[2023-02-05] MEDS: BACLOFEN 10 MG TABLET PO ×2 (15:08→20:33)
[2023-02-05 20:02] VITALS: BP 134/73; PULSE 76; RESP 18; TEMP 36.4; O2SAT 99
[2023-02-05] MEDS: ENOXAPARIN 40 MG/0.4 ML SYRINGE SUB-Q (20:33)
[2023-02-05] MEDS: levoFLOXacin 750 MG TABLET PO (21:57)
[2023-02-06 04:24] VITALS: BP 154/75; PULSE 75; RESP 16; TEMP 35.8; O2SAT 96
[2023-02-06 06:37] LABS: Hematocrit 40.8 % (37.0-47.0); Hemoglobin 13.4 g/dL (12.0-15.0); Mean Corpuscular HGB Conc 32.8 g/dl (32-36); Mean Corpuscular Hemoglobin 31.5 pg (26-34); Mean Platelet Volume 10.7 fl (7.4-10.4); Platelet Count Result 162 k/mm3 (150-375); Red Blood Count 4.25 M/mm3 (4.2-5.4); Red Cell Distribution Width 13.9 % (11.5-14.5)
[2023-02-06 06:58] LABS: Anion Gap 2 mmol/L (8-16); Blood Urea Nitrogen 13 mg/dL (7-17); Calcium 9.3 mg/dL (8.4-10.2); Carbon Dioxide 32 mmol/L (22-30); Chloride 106 mmol/L (98-107); Estimated CRCL calculation 77 ml/min; Estimated Glomerular Filt Rate > 60; Glucose 90 mg/dL (65-110); Magnesium 1.9 mg/dL (1.6-2.3); Potassium 3.8 mmol/L (3.4-5.0); Sodium 140 mmol/L (137-145)
[2023-02-06] MEDS: FOLIC ACID 1 MG TABLET PO (10:44)
[2023-02-06] MEDS: METHOTREXATE 2.5 MG TAB (*CHEMO) 7.5 MG PO (10:44)
[2023-02-06] MEDS: CHOLECALCIFEROL 1,000 UNITS TABLET 5000 UNITS PO (10:44)
[2023-02-06] MEDS: SOLIFENACIN 5 MG TABLET 10 MG PO (10:44)
[2023-02-06] MEDS: ASCORBIC ACID 500 MG TABLET PO (10:45)
[2023-02-06] MEDS: ATORVASTATIN 40 MG TABLET BY MOUTH (10:45)
[2023-02-06] MEDS: BACLOFEN 10 MG TABLET PO (10:49)
--- NOTE | 2023-02-06 12:31 | PM.IMPN ---
Progress Note: A&P Assessment and Plan (1) Localized swelling of both lower extremities: Code(s): M79.89 - Other specified soft tissue disorders Status: Acute Assessment and Plan: Lymphedema noted. Continue diuresis (2) Impaired mobility and ADLs: Code(s): Z74.09 - Other reduced mobility; Z78.9 - Other specified health status Status: Acute Assessment and Plan: Will have PT OT evaluate the patient (3) Unable to perform basic transfers independently: Code(s): R68.89 - Other general symptoms and signs Status: Acute Assessment and Plan: Patient will benefit going to rehab (4) Essential hypertension: Code(s): I10 - Essential (primary) hypertension Status: Acute Assessment and Plan: Will continue home regimen Subjective Date/time seen: 02/06/23 12:31 No complaints Exam Narrative: Morbidly obese Patient is comfortable, NAD HEENT: eyes are clear and none icteric LUNGS: Normal respiratory effort ABD: Distended Lower extremities: no edema SKIN: nonjaundiced Neuro: grossly intact. Objective Data Vital Signs Vital Signs: Vital Signs - 24 hr 02/05/23 14:00 02/05/23 20:02 02/05/23 20:00 Temperature 96.3 F L 97.6 F Pulse Rate 65 76 Respiratory Rate 16 18 Blood Pressure 110/61 134/73 Pulse Oximetry 95 99 Oxygen Delivery Room Air 02/06/23 04:24 02/06/23 08:00 Temperature 96.4 F L Pulse Rate 75 Respiratory Rate 16 Blood Pressure 154/75 H Pulse Oximetry 96 Oxygen Delivery Room Air Intake/Output Intake/Output: Intake & Output 02/03/23 02/04/23 02/05/23 02/06/23 23:59 23:59 23:59 23:59 Intake Total 4924 2201 1300 370 Output Total 3050 2500 2800 2125 Balance 8013 -026 -5853 -5028 Meds/Results Medications: Active Medications Generic Name Dose Route Start Last Admin Trade Name Freq PRN Reason Stop Dose Admin Ascorbic Acid 500 mg 02/01/23 09:00 02/06/23 10:45 Ascorbic Acid 500 Mg Tablet PO 500 mg DAILY MELISSA Administration Atorvastatin Calcium 40 mg 02/01/23 09:00 02/06/23 10:45 Atorvastatin 40 Mg Tablet BY MOUTH 40 mg DAILY MELISSA Administration Baclofen 10 mg 02/06/23 12:31 Baclofen 10 Mg Tablet PO TID PRN pain or spasms Enoxaparin Sodium 40 mg 02/01/23 21:00 02/06/23 10:45 Enoxaparin 40 Mg/0.4 Ml Syringe SUB-Q Not Given Q12HR [facility] Folic Acid 1 mg 02/02/23 09:00 02/06/23 10:44 Folic Acid 1 Mg Tablet PO 1 mg DAILY MELISSA Administration Levofloxacin 750 mg 02/04/23 21:00 02/05/23 21:57 Levofloxacin 750 Mg Tablet PO 02/08/23 23:59 750 mg DAILY@2100 MELISSA Administration Methotrexate 7.5 mg 02/06/23 09:00 02/06/23 10:44 Methotrexate 2.5 Mg Tab (*Chemo) PO 7.5 mg WEEKLY [facility] Administration Miconazole Nitrate 1 applic 02/01/23 09:00 02/06/23 10:45 Miconazole 2% Antifungal Ointment 56 Gm TOPICAL 1 applic Q12HR MELISSA Administration Solifenacin 10 mg 02/01/23 09:00 02/06/23 10:44 Solifenacin 5 Mg Tablet PO 03/03/23 08:59 10 mg DAILY MELISSA Administration Vitamin D 5,000 units 02/01/23 09:00 02/06/23 10:44 Cholecalciferol 1,000 Units Tablet PO 5,000 units DAILY MELISSA Administration Radiology Results: ITS Impressions Modified Barium Swallow 02/02/23 10:29 IMPRESSION: 1: Normal swallowing function without aspiration. 2: Please refer to speech pathologist report for additional detail. Labs Labs: Laboratory Results - last 24 hr 02/06/23 02/06/23 06:10 06:10 WBC 8.0 RBC 4.25 Hgb 13.4 Hct 40.8 MCV 96.0 MCH 31.5 MCHC 32.8 RDW 13.9 Plt Count 162 MPV 10.7 H Sodium 140 Potassium 3.8 Chloride 106 Carbon Dioxide 32 H Anion Gap 2 L BUN 13 Creatinine 0.60 L Estim Creat Clear Calc 77 Estimated GFR > 60 Glucose 90 Calcium 9.3 Magnesium 1.9
[2023-02-06 14:00] VITALS: BP 129/85; PULSE 78; RESP 18; TEMP 36.6; O2SAT 97
[2023-02-06] MEDS: levoFLOXacin 750 MG TABLET PO (20:18)
[2023-02-06] MEDS: ENOXAPARIN 40 MG/0.4 ML SYRINGE SUB-Q (20:22)
[2023-02-06 21:42] VITALS: BP 140/70; PULSE 90; RESP 18; TEMP 36.8; O2SAT 98
[2023-02-07 06:00] VITALS: BP 151/80; PULSE 78; RESP 18; TEMP 36.8; O2SAT 98
[2023-02-07 06:27] LABS: Hematocrit 41.8 % (37.0-47.0); Hemoglobin 13.6 g/dL (12.0-15.0); Mean Corpuscular HGB Conc 32.5 g/dl (32-36); Mean Corpuscular Volume 98.4 fl (80-100); Mean Platelet Volume 10.2 fl (7.4-10.4); Platelet Count Result 174 k/mm3 (150-375); Red Blood Count 4.25 M/mm3 (4.2-5.4); Red Cell Distribution Width 14.2 % (11.5-14.5); White Blood Count 6.2 K/mm3 (4.5-10.0)
[2023-02-07 06:40] LABS: Anion Gap 3 mmol/L (8-16); Blood Urea Nitrogen 14 mg/dL (7-17); Carbon Dioxide 32 mmol/L (22-30); Chloride 105 mmol/L (98-107); Estimated CRCL calculation 67 ml/min; Estimated Glomerular Filt Rate > 60; Glucose 95 mg/dL (65-110); Potassium 3.9 mmol/L (3.4-5.0); Sodium 140 mmol/L (137-145)
[2023-02-07 07:38] LABS: Glucose Point of Care 89 mg/dl (65-105)
[2023-02-07] MEDS: CHOLECALCIFEROL 1,000 UNITS TABLET 5000 UNITS PO (08:35)
[2023-02-07] MEDS: ENOXAPARIN 40 MG/0.4 ML SYRINGE SUB-Q (08:35)
[2023-02-07] MEDS: SOLIFENACIN 5 MG TABLET 10 MG PO (08:35)
[2023-02-07] MEDS: ASCORBIC ACID 500 MG TABLET PO (08:35)
[2023-02-07] MEDS: FOLIC ACID 1 MG TABLET PO (08:35)
[2023-02-07] MEDS: ATORVASTATIN 40 MG TABLET BY MOUTH (08:35)
--- NOTE | 2023-02-07 11:02 | PM.IMPN ---
Progress Note: A&P Assessment and Plan (1) Localized swelling of both lower extremities: Code(s): M79.89 - Other specified soft tissue disorders Status: Acute Assessment and Plan: Lymphedema noted. Continue diuresis (2) Impaired mobility and ADLs: Code(s): Z74.09 - Other reduced mobility; Z78.9 - Other specified health status Status: Acute Assessment and Plan: Will have PT OT evaluate the patient (3) Unable to perform basic transfers independently: Code(s): R68.89 - Other general symptoms and signs Status: Acute Assessment and Plan: Patient will benefit going to rehab (4) Essential hypertension: Code(s): I10 - Essential (primary) hypertension Status: Acute Assessment and Plan: Will continue home regimen Subjective Date/time seen: 02/07/23 11:02 No complaints Exam Narrative: Morbidly obese Patient is comfortable, NAD HEENT: eyes are clear and none icteric LUNGS: Normal respiratory effort ABD: Distended Lower extremities: no edema SKIN: nonjaundiced Neuro: grossly intact. Objective Data Vital Signs Vital Signs: Vital Signs - 24 hr 02/06/23 14:00 02/06/23 20:00 02/06/23 21:42 Temperature 97.8 F 98.2 F Pulse Rate 78 90 Respiratory Rate 18 18 Blood Pressure 129/85 140/70 Pulse Oximetry 97 98 Oxygen Delivery Room Air 02/07/23 06:00 02/07/23 08:35 Temperature 98.3 F Pulse Rate 78 Respiratory Rate 18 Blood Pressure 151/80 H Pulse Oximetry 98 Oxygen Delivery Room Air Intake/Output Intake/Output: Intake & Output 02/04/23 02/05/23 02/06/23 02/07/23 23:59 23:59 23:59 23:59 Intake Total 2201 1300 1240 120 Output Total 2500 2800 3300 Balance -299 -1500 -2060 120 Meds/Results Medications: Active Medications Generic Name Dose Route Start Last Admin Trade Name Freq PRN Reason Stop Dose Admin Ascorbic Acid 500 mg 02/01/23 09:00 02/07/23 08:35 Ascorbic Acid 500 Mg Tablet PO 500 mg DAILY MELISSA Administration Atorvastatin Calcium 40 mg 02/01/23 09:00 02/07/23 08:35 Atorvastatin 40 Mg Tablet BY MOUTH 40 mg DAILY MELISSA Administration Baclofen 10 mg 02/06/23 12:31 Baclofen 10 Mg Tablet PO TID PRN pain or spasms Enoxaparin Sodium 40 mg 02/01/23 21:00 02/07/23 08:35 Enoxaparin 40 Mg/0.4 Ml Syringe SUB-Q 40 mg Q12HR MELISSA Administration Folic Acid 1 mg 02/02/23 09:00 02/07/23 08:35 Folic Acid 1 Mg Tablet PO 1 mg DAILY MELISSA Administration Levofloxacin 750 mg 02/04/23 21:00 02/06/23 20:18 Levofloxacin 750 Mg Tablet PO 02/08/23 23:59 750 mg DAILY@2100 MELISSA Administration Methotrexate 7.5 mg 02/06/23 09:00 02/06/23 10:44 Methotrexate 2.5 Mg Tab (*Chemo) PO 7.5 mg WEEKLY MELISSA Administration Miconazole Nitrate 1 applic 02/01/23 09:00 02/07/23 08:36 Miconazole 2% Antifungal Ointment 56 Gm TOPICAL 1 applic Q12HR MELISSA Administration Solifenacin 10 mg 02/01/23 09:00 02/07/23 08:35 Solifenacin 5 Mg Tablet PO 03/03/23 08:59 10 mg DAILY MELISSA Administration Vitamin D 5,000 units 02/01/23 09:00 02/07/23 08:35 Cholecalciferol 1,000 Units Tablet PO 5,000 units DAILY MELISSA Administration Radiology Results: ITS Impressions Modified Barium Swallow 02/02/23 10:29 IMPRESSION: 1: Normal swallowing function without aspiration. 2: Please refer to speech pathologist report for additional detail. Labs Labs: Laboratory Results - last 24 hr 02/07/23 02/07/23 02/07/23 06:05 06:05 07:29 WBC 6.2 RBC 4.25 Hgb 13.6 Hct 41.8 MCV 98.4 MCH 32.0 MCHC 32.5 RDW 14.2 Plt Count 174 MPV 10.2 Sodium 140 Potassium 3.9 Chloride 105 Carbon Dioxide 32 H Anion Gap 3 L BUN 14 Creatinine 0.70 Estim Creat Clear Calc 67 Estimated GFR > 60 Glucose 95 POC Capillary Glucose 89 Calcium 9.0 Magnesium 2.0
--- NOTE | 2023-02-07 11:09 | PM.DS ---
DS: Admitting Diagnosis Discharge Date February 07, 2023 Admitting Diagnosis UTI and lymphedema DS: Discharge Diagnosis Discharge Diagnosis (1) Localized swelling of both lower extremities: Code(s): M79.89 - Other specified soft tissue disorders Status: Acute (2) Impaired mobility and ADLs: Code(s): Z74.09 - Other reduced mobility; Z78.9 - Other specified health status Status: Acute (3) Unable to perform basic transfers independently: Code(s): R68.89 - Other general symptoms and signs Status: Acute (4) Essential hypertension: Code(s): I10 - Essential (primary) hypertension Status: Acute DS: Summary Hospital Course Hospital Course: 77-year-old female came with lymphedema and UTI. Started on antibiotics her UTI is resolved. Will continue antibiotics on discharge. Otherwise she has some lymphedema which will need to be maintained by wound care/nursing staff at shelter facility. Time Spent with Patient Time attestation: Total time spent providing and/or coordinating discharge services: Exam Narrative: General: alert and oriented Psych: appropriate mood nad affect Eyes: PERRLA Neck: Trachea midline, no new lesions Skin: no changes Lungs: CTA Cardiac: Normal S1,S2, no MGR ABD: soft, nd, nt, nbs Ext: Edema is improved Vasc: Pulses intact DS: Data Data Completed and Pending Labs on day of discharge: Labs from last 24 hours 02/07/23 02/07/23 02/07/23 07:29 06:05 06:05 WBC 6.2 RBC 4.25 Hgb 13.6 Hct 41.8 MCV 98.4 MCH 32.0 MCHC 32.5 RDW 14.2 Plt Count 174 MPV 10.2 Sodium 140 Potassium 3.9 Chloride 105 Carbon Dioxide 32 H Anion Gap 3 L BUN 14 Creatinine 0.70 Estim Creat Clear Calc 67 Estimated GFR > 60 Glucose 95 POC Capillary Glucose 89 Calcium 9.0 Magnesium 2.0 Discharge Plan Discharge Attending physician on discharge: Guanako aMrrufo Consulting providers: Trish Ríos Discharging Clinician: Guanako Marrufo Patient Disposition: Home, Self-Care Activity: no preference Diet: as tolerated Discharge Instructions: per care coordination, [facility] arranged for RN, PT/OT evaluations and treatment. [facility] can be reached at [phone]. RN, please fax discharge instructions to [phone] once complete. [facility] will contact you for first visit arrangements. Thank you. Patient Instructions: Antibiotic Form Stand Alone Forms: General Discharge Information Follow-up/Referrals: Arnold Gregg MD [Primary Care Provider] - Discharge Medications: New furosemide 20 mg tablet 20 mg PO DAILY Qty: 20 0RF levofloxacin 750 mg tablet 750 mg PO DAILY Qty: 5 0RF Continued psyllium husk [Fiber (psyllium husk)] 0.4 gram capsule 0.4 g PO DAILY baclofen 10 mg tablet 10 mg PO BID solifenacin 10 mg tablet 10 mg PO DAILY folic acid 20 mg capsule 20 mg PO DAILY ascorbate calcium (vitamin C) 500 mg tablet 500 mg PO DAILY cranberry 500 mg capsule 500 mg PO DAILY Label Comments: patient takes this medication daily Rx Instructions: administer with meals cholecalciferol (vitamin D3) 125 mcg (5,000 unit) capsule 125 mcg PO DAILY methotrexate sodium 2.5 mg tablet 7.5 mg PO WEEKLY Label Comments: Patient mentioned she has not taken in a few weeks. atorvastatin 40 mg tablet See Rx Instructions .ROUTE .COMPLEX Qty: 90 1RF Dose Instruction: TAKE 1 TABLET BY MOUTH DAILY Rx Instructions: TAKE 1 TABLET BY MOUTH DAILY Date of admission: 02/03/23 17:16 Primary Care Provider: Arnold Gregg Admitting Provider: Liz Arredondo Attending physician on admission: Liz Arredondo Condition: Stable
[2023-02-07 12:14] LABS: EDCOVIDSCREEN Negative (Negative)
== END 2023-02-07 13:35 | DRG 700 ==
LOC: ANHED 02-01 01:48 → ANH3MEDSUR 02-01 02:59
PROVIDERS: Family Medicine; Admitting Provider Internal Medicine; Emergency Provider Physician Assistant; PCP Internal Medicine; Visit Provider Chiropractor
DX: T83.518A Infection and inflammatory reaction due to other urinary catheter, initial encounter (principal); M79.89 Other specified soft tissue disorders; B96.20 Unspecified Escherichia coli [E. coli] as the cause of diseases classified elsewhere; E66.01 Morbid (severe) obesity due to excess calories; E78.5 Hyperlipidemia, unspecified; G35 Multiple sclerosis; I89.0 Lymphedema, not elsewhere classified; R82.71 Bacteriuria; Z74.09 Other reduced mobility; I10 Essential (primary) hypertension; Z68.35 Body mass index [BMI] 35.0-35.9, adult; Z20.822 Contact with and (suspected) exposure to COVID-19
CPT/HCPCS: 36415; 80048; 80053; 81001; 82948; 83735; 83880; 85025; 85027; 85055; 85610; 85652; 85730; 86140; 87077; 87086; 87186; 87426; 92610; 92611; 96361; 96365; 96367; 96372; 97161; 97165; 97530; 97535; 99285; A9270; C9803; G0378; J0131; J1650; J1956; J7030

== ENCOUNTER 2023-02-11 06:46 | Emergency (ER) | payer MEDICARE, SELFPAY ==
[2023-02-11] VITALS (7 sets, daily range): BP systolic 124–147; BP diastolic 60–85; PULSE 66–78; RESP 16–19; TEMP 36.3; O2SAT 94–98
--- NOTE | ~2023-02-11 | XR_ITS ---
Left foot Technique: AP, oblique, and lateral views were obtained. Clinical History: Pain, swelling Findings: No acute fracture or dislocation is seen. Osseous alignment is anatomic. Joint spaces are p reserved without erosive or degenerative change. Soft tissues are unremarkable. Impression: Unremarkable left foot radiographs. Reviewed, dictated and finalized at [facility]. Impression: Unremarkable left foot radiographs.
--- NOTE | ~2023-02-11 | US_ITS ---
EXAMINATION: US venous doppler [facility] DATE: 02/11/2023 08:22 INDICATION: Left lower limb swelling. TECHNIQUE: Grayscale ultrasound images without and with compression and Doppler ultrasound images of the left lower extremity veins were obtained. COMPARISON: Ultrasound 01/27/2023 FINDINGS: The visualized portions of left common femoral vein, profunda (deep) femoral vein, femoral vein, popl iteal vein, peroneal veins, posterior tibial veins, and greater saphenous vein outflow are patent. IMPRESSION: 1. No deep venous thrombosis. Reviewed, dictated and finalized at location A.
--- NOTE | ~2023-02-11 | XR_ITS ---
Left ankle Technique: AP, oblique, and lateral views were obtained. Clinical History: Pain, swelling Findings: No acute fracture or dislocation is seen. Osseous alignment is anatomic. Ankle mortise and other visualized joint spaces are preserved. Mild diffuse subcutaneous soft tissue edema noted. Impression: No osseous or articular abnormality. Mild diffuse subcutaneous soft tissue edema. Reviewed, dictated and finalized at [facility]. Impression: No osseous or articular abnormality. Mild diffuse subcutaneous soft tissue edema.
--- NOTE | 2023-02-11 07:23 | ED.EXTPRO ---
HPI - Extremity Problem General Chief complaint: Extremity Problem,Nontraumatic Stated complaint: Left foot pain and swellin Time Seen by Provider: 02/11/23 07:17 Source: patient and EMS Mode of arrival: EMS Limitations: no limitations History of Present Illness HPI Narrative: Patient is 77 years old white female came to the emergency room by ambulance complaining of left foot pain started last night and worsened this morning. On arrival to the ED patient reported that no pain as long as nobody touched her leg or move her leg. The pain mainly at the foot laterally. Related Data Home Medications Medication Instructions Recorded Confirmed baclofen 10 mg tablet 10 mg PO BID 09/09/19 02/01/23 ascorbate calcium (vitamin C) 500 500 mg PO DAILY 04/05/21 02/01/23 mg tablet cholecalciferol (vitamin D3) 125 125 mcg PO DAILY 04/05/21 02/01/23 mcg (5,000 unit) capsule cranberry 500 mg capsule 500 mg PO DAILY 04/05/21 02/01/23 folic acid 20 mg capsule 20 mg PO DAILY 04/05/21 02/01/23 solifenacin 10 mg tablet 10 mg PO DAILY 04/05/21 02/01/23 psyllium husk 0.4 gram capsule 0.4 g PO DAILY 08/16/21 02/01/23 (Fiber (psyllium husk)) methotrexate sodium 2.5 mg tablet 7.5 mg PO WEEKLY 10/20/21 02/01/23 Allergies Allergy/AdvReac Type Severity Reaction Status Date / Time nitrofurantoin Allergy Mild Hives Verified 02/11/23 07:00 Penicillins Allergy Mild Hives Verified 02/11/23 07:00 Sulfa (Sulfonamide Allergy Mild Rash Verified 02/11/23 07:00 Antibiotics) sulfamethizole Allergy Mild Hives Verified 02/11/23 07:00 Review of Systems Review of Systems: All systems reviewed & are unremarkable except as noted in HPI and below PMFSH Past Medical History Medical History Dyslipidemia Encounter for screening colonoscopy Essential hypertension Impaired glucose tolerance Lymphedema MS (multiple sclerosis) Obesity Overactive bladder Paraparesis of both lower limbs Positive colorectal cancer screening using Cologuard test Surgical History Surgical History (Updated 02/01/23 @ 00:37 by Trish Ríos PA-C) No pertinent past surgical history Family History Family History (Updated 02/01/23 @ 04:11 by London Slater RN) Sibling Family history of multiple sclerosis Father Acute myocardial infarction Family history of diabetes mellitus in first degree relative Diabetes mellitus Mother Acute myocardial infarction Sibling Family history of musculoskeletal disease Other Family history of cardiovascular disease Social History Social History Smoking status: Never smoker Second hand tobacco smoke exposure: No Alcohol intake: current Drinks per week: 1 Substance use: current Substance use type: does not use Lack of Transportation: YES Lack of Food: Never True Current Housing: I Have Housing Concerned About Future Housing: No Difficulty Paying Gas/Electric Bills: No Difficulty Paying for Meds: No Currently Unemployed: No Education: Master's Degree or Higher Difficulty w/ Childcare or Family Care: No Spiritual care concerns: No Exam Narrative: General appearance: Well-developed, well-nourished Skin: Normal color, left lower extremity exam showed extensive dry skin on the left foot, chronic stasis dermatitis of the leg, 1+ edema bilaterally scabs, , no warmth, no deformity, dark greenish bruises left foot medially, tender to touch Head: Normocephalic, nontraumatic Eyes: Clear conjunctiva ENT: Oropharynx normal, ears normal, nose normal Neck: Supple, nontender Chest and respiratory: Airway patent, no respiratory distress, no accessory muscle use Heart: Regular rate/rhythm Abdomen: Soft, nontender, no organomegaly, quiet bowel sounds Vascular: Normal peripheral pulses
[2023-02-11] MEDS: HYDROcodone/acetaminophen (*CRX) 5-325 MG TABLET 1 TAB PO (07:54)
[2023-02-11 08:11] LABS: Anion Gap 7 mmol/L (8-16); Blood Urea Nitrogen 18 mg/dL (7-17); Calcium 9.2 mg/dL (8.4-10.2); Carbon Dioxide 32 mmol/L (22-30); Chloride 101 mmol/L (98-107); Estimated CRCL calculation 65 ml/min; Estimated Glomerular Filt Rate > 60; Glucose 106 mg/dL (65-110); Sodium 140 mmol/L (137-145)
[2023-02-11 08:14] LABS: Prothrombin Time 13.2 Seconds (11.1-14.7)
[2023-02-11 08:15] LABS: Partial Thromboplastin Time 28.6 SECONDS (22.3-36.8)
[2023-02-11 08:22] LABS: Basophils Absolute Auto 0.1 K/mm3 (0.0-0.1); Basophils Percent Auto 0.5 % (0.2-1.2); Eosinophils Absolute Auto 0.3 K/mm3 (0-0.3); Eosinophils Percent Auto 2.7 % (0-4.4); Hematocrit 46.6 % (37.0-47.0); Hemoglobin 15.3 g/dL (12.0-15.0); Immature Granulocyte Absolute 0.06 K/mm3 (0.00-0.031); Immature Granulocyte Percent A 0.6 % (0-0.5); Lymphocytes Absolute Auto 1.63 K/mm3 (0.9-3.2); Lymphocytes Percent Auto 15.9 % (18.3-44.2); Mean Corpuscular HGB Conc 32.8 g/dl (32-36); Mean Corpuscular Hemoglobin 32.1 pg (26-34); Mean Corpuscular Volume 97.9 fl (80-100); Mean Platelet Volume 9.7 fl (7.4-10.4); Monocytes Absolute Auto 0.9 K/mm3 (0.1-0.6); Monocytes Percent Auto 8.9 % (2.6-8.5); Neutrophils Absolute Auto 7.3 K/mm3 (1.3-6.7); Neutrophils Percent Auto 71.4 % (45.5-73.1); Platelet Count Result 231 k/mm3 (150-375); Red Blood Count 4.76 M/mm3 (4.2-5.4); Red Cell Distribution Width 13.8 % (11.5-14.5); White Blood Count 10.3 K/mm3 (4.5-10.0)
--- NOTE | 2023-02-11 13:48 | PCCCNOTE ---
Addendum entered by Kaci Teague RN 02/11/23 15:07: Phone call to [facility] and spoke with Daan as Cristal is not in the office this afternoon. Per Dana, will need referral fax'd, she reports that it will take a couple days for [facility] to be transferred. She has beds but would not be able to accept as private pay until full referral is reviewed which would take rest of the day. Dana advises to fax referral to [phone], she will work with [facility] to have patient transferred pending acceptance. Patient and family updated and verbalize understanding. They will follow up with [facility] and [facility]. Family would like customer care specialist to contact [facility] to notify that referral sent and requesting transfer to [facility] since patient's family all live in [place] and sister's is there also. Phone call to Earle at [facility] notified as directed by family and she will follow up with [facility] to facilitate. Patient and family provided with [facility] phone number and educated on [facility] for custodial care faciliites. ED MD Dr. lGynn and nurse Bethany updated. Original Note: Referral received to meet with patient about a different correction. Met with patient and sister in ED room 10. Sister is healthcare POA but patient also is able to make medical decisions. Sister states that she wants her sister moved to [facility]. She has been accepted per sister. She will provide this customer care specialist with phone and fax. Asked patient what her concerns are, she states that she doesn't think that they can take care of her but nothing has specifically happened. Does not think that they are taking care of other residents appropriately. States that PT/OT saw her on Saturday for eval but she hasn't received any skilled care. She was supposed to have PT/OT today. Asked patient is she has tried to work with SW at [facility] or talk to admin prog coord and she states that she hasn't. Explained that at this time she does not have a qualifying diagnosis to be admitted to the hospital and explained that this customer care specialist will work closely with new correction but if they are unable to accept today may need to go back to [facility] and they could work with [facility] to get transferred. Sister has to go out to the car to get the contacts.
== END 2023-02-11 17:37 ==
PROVIDERS: Emergency Provider Emergency Medicine; PCP Internal Medicine
DX: M79.672 Pain in left foot (principal); E78.5 Hyperlipidemia, unspecified; I10 Essential (primary) hypertension; G35 Multiple sclerosis; N32.81 Overactive bladder; E66.9 Obesity, unspecified; Z68.33 Body mass index [BMI] 33.0-33.9, adult
CPT/HCPCS: 36415; 73610; 73630; 80048; 85025; 85610; 85730; 93971; 99284; A9270